=== PATIENT | female | born 1995 | race Caucasian/White ===

== ENCOUNTER 2021-11-04 05:38 | Emergency (ER) | payer OTHER, SELFPAY ==
--- NOTE | ~2021-11-04 | US_ITS ---
EXAMINATION: US OB LIMITED US OB TRANSVAGINAL CLINICAL INFORMATION: Vaginal bleeding at 6 months. COMPARISON: None TECHNIQUE: Both transabdominal and endovaginal ultrasound was performed. FINDINGS: A single fetus is present in a transverse lie. The fetus was active during the course of the exam, and a normal heartbeat of 142 bpm was noted. measurements in cm were as follows: BPD: 5.4 (22 weeks 3 days Occipitofrontal diameter: 7.6 (24 weeks 1 day) Head circumference: 21.3 (23 weeks 3 days) Femur length: 4.13 (23 weeks 3 days) No anomaly was seen although this was not a survey. Gestational age is best estimated at 23 weeks, 0 days with an MARCOS of 03/03/2022. Estimated weight is 1 lb. 3 oz. The cervix measured 3.4 cm in length and is closed. The placenta is low-lying but 3.3 cm from the cervix. There is a hypoechoic area within the placenta measuring 3.8 x 2.1 x 1.6 cm, most likely a normal placental blakely. No evidence of placental abruption. Amniotic fluid volume is normal. US/US OB transvaginal IMPRESSION: Normal-appearing fetus with mean gestational age best estimated at 23 weeks. No evidence of placenta previa or abruption.
--- NOTE | ~2021-11-04 | US_ITS ---
EXAMINATION: US OB LIMITED US OB TRANSVAGINAL CLINICAL INFORMATION: Vaginal bleeding at 6 months. COMPARISON: None TECHNIQUE: Both transabdominal and endovaginal ultrasound was performed. FINDINGS: A single fetus is present in a transverse lie. The fetus was active during the course of the exam, and a normal heartbeat of 142 bpm was noted. measurements in cm were as follows: BPD: 5.4 (22 weeks 3 days Occipitofrontal diameter: 7.6 (24 weeks 1 day) Head circumference: 21.3 (23 weeks 3 days) Femur length: 4.13 (23 weeks 3 days) No anomaly was seen although this was not a survey. Gestational age is best estimated at 23 weeks, 0 days with an MARCOS of 03/03/2022. Estimated weight is 1 lb. 3 oz. The cervix measured 3.4 cm in length and is closed. The placenta is low-lying but 3.3 cm from the cervix. There is a hypoechoic area within the placenta measuring 3.8 x 2.1 x 1.6 cm, most likely a normal placental blakely. No evidence of placental abruption. Amniotic fluid volume is normal. US/US OB limited IMPRESSION: Normal-appearing fetus with mean gestational age best estimated at 23 weeks. No evidence of placenta previa or abruption.
[2021-11-04 06:00] LABS: Basophils Percent Auto 0.3 % (0-2); Eosinophils Absolute Auto 0.1 X10*3/uL (0.0-0.4); Hematocrit 29.8 % (37.0-47.0); Hemoglobin 9.7 g/dl (12.0-16.0); Imm Gran Abs Auto 0.17 X10*3/uL (0.00-0.03); Imm Gran Pct Auto 1.5 % (0.0-0.4); Lymphocytes Absolute Auto 2.1 X10*3/uL (1.2-4.9); Lymphocytes Percent Auto 18.9 % (20-40); MANUAL DIFF FLAG NO; Mean Corpuscular HGB Conc 32.6 g/dl (31.0-35.0); Mean Corpuscular Hemoglobin 25.7 pg (27.0-33.0); Mean Platelet Volume 10.5 fL (9.4-12.3); Monocytes Absolute Auto 0.8 X10*3/uL (0.1-1.2); Monocytes Percent Auto 7.2 % (2-11); Neutrophils Percent Auto 71.1 % (45-73); Platelet Count 252 X10*3/uL (160-400); Red Blood Count 3.77 X10*6/uL (4.20-5.50); White Blood Count 11.2 X10*3/uL (4.8-10.8)
[2021-11-04 06:02] VITALS: BP 113/72; PULSE 108; RESP 18; TEMP 36.4; O2SAT 99; BMI 28.9
[2021-11-04 06:23] LABS: Alanine Aminotransferase 28 U/L (0-31); Albumin Level 3.6 g/dL (3.5-5.0); Alkaline Phosphatase 47 U/L (39-117); Anion Gap 11 (12-20); Aspartate Amino Transferase 22 U/L (5-31); Bilirubin Total 0.2 mg/dL (0.0-1.0); Blood Urea Nitrogen 7 mg/dL (9-16); Calcium 8.7 mg/dL (8.4-10.2); Carbon Dioxide 20 mmol/L (22-29); Chloride 107 mmol/L (96-108); Estimated Glomerular Filt Rate > 60; Glucose Random 86 mg/dL (60-115); Potassium 3.9 mmol/L (3.3-5.1); Sodium 134 mmol/L (135-145); Total Protein 6.8 g/dL (6.5-8.0)
[2021-11-04 06:50] LABS: HCG Quantitative 21329 mIU/mL
[2021-11-04 07:10] VITALS: BP 98/61; PULSE 105; RESP 16; O2SAT 100
[2021-11-04] MEDS: 0.9 % Sodium Chloride 1,000 ML 999 ML IV (07:16)
[2021-11-04 08:35] VITALS: BP 101/62; PULSE 88; RESP 16; O2SAT 100
[2021-11-04 08:46] LABS: Appearance Urine HAZY; Color Urine STRAW; Glucose Urine UA NEG (NEG); Leukocyte Esterase Urine NEG (NEG); Nitrite Urine NEG (NEG); PH 5.5 (5.0-8.0); Urine Blood NEG (NEG); Urine Ketones NEG (NEG); Urine Protein NEG (NEG-TRACE)
[2021-11-04 08:48] LABS: UPreg QC Valid YES; Urine Pregnancy POSITIVE (NEGATIVE)
--- NOTE | 2021-11-04 10:29 | ED_ITS ---
HPI - General Chief complaint: OB Stated complaint: vaginal bleeding, 6 mos Time Seen by Provider: 11/04/21 06:53 Source: patient and paraprofessional interpreter Mode of arrival: ambulatory History of Present Illness HPI Narrative: 26-year-old female who is comes in with having had a verbal altercation with her significant other and then afterwards developed lower pelvic cramping and she states that when your she went pee that she noted there was some blood within the urine. Otherwise she is currently asymptomatic and states that she still feels the child moving. She states that has been uncomplicated and she currently has no complaints of fever, chills, visual changes, lower extremity swelling, nausea, vomiting. Patient denies that she was hit or struck by her significant other and states she feels safe at home. Related Data Allergies Allergy/AdvReac Type Severity Reaction Status Date / Time No Known Allergies Allergy Verified 11/04/21 06:00 Review of Systems Review of Systems: Pertinent positives and negatives as stated in HPI 10 point review of systems is otherwise negative. PMFSH Social History Social History Smoked in Last 30 Days: No Use of substances other than those prescribed or required for medical reasons: No Advance Directives: No Advance Directives Information Provided: No Patient : Yes Physical Exam Vital Signs: Vital Signs: Last Vital Signs Temp 97.6 F 11/04/21 06:02 Pulse 88 11/04/21 08:35 Resp 16 11/04/21 08:35 BP 101/62 11/04/21 08:35 Pulse Ox 100 11/04/21 08:35 O2 Del Method 11/04/21 08:35 BMI result Body Mass Index 28.9 VITAL SIGNS: Reviewed. GENERAL: Well developed, well nourished, in no acute distress. HEAD: Normocephalic/atraumatic EYES: PERRLA, EOMI EARS: Ext canals without abnormalit OROPHARYNX: no oral lesions noted, posterior pharynx clear LUNGS: Normal breath sounds. No adventitious sounds or accessory muscle use. SpO2<100> CARDIOVASCULAR: Regular rate and rhythm without noted murmurs, no JVD or lower extremity edema. ABDOMEN: Soft, gravid, non-tender, non-distended with bowel sounds. MUSCULOSKELETAL: No tenderness, deformities, or effusions noted on gross inspection. EXTREMITIES: No cyanosis, clubbing or edema. SKIN: Inspection of the skin reveals no rashes NEUROLOGIC: Alert and oriented x 4. Strength and sensation to light touch were grossly intact x 4. Course Course Course Narrative: 26-year-old female with history and clinical presentation consistent with likely stress induced abdominal symptoms but no concerns for premature labor. Patient is now completely asymptomatic, feeling better and on review of all investigations there are no acute findings. Patient was instructed to follow-up with her hurl shaker by calling the office today. Review of all investigations negative for acute findings. MDM - OB/Uterine Contractions Lab Data Result diagrams: 11/04/21 05:56 11/04/21 05:56 Labs: Lab Results 11/04/21 11/04/21 11/04/21 Range/Units 05:56 05:56 08:38 WBC 11.2 H (4.8-10.8) X10*3/uL RBC 3.77 L (4.20-5.50) X10*6/uL Hgb 9.7 L (12.0-16.0) g/dl Hct 29.8 L (37.0-47.0) % MCV 79.0 L (80.0-98.0) fL MCH 25.7 L (27.0-33.0) pg MCHC 32.6 (31.0-35.0) g/dl RDW 15.0 (11.0-16.0) % Plt Count 252 (160-400) X10*3/uL MPV 10.5 (9.4-12.3) fL Immature Gran % (Auto) 1.5 H (0.0-0.4) % Neut % (Auto) 71.1 (45-73) % Lymph % (Auto) 18.9 L (20-40) % [place] % (Auto) 7.2 (2-11) % Eos % (Auto) 1.0 (0-4) % Baso % (Auto) 0.3 (0-2) % Lymph # (Auto) 2.1 (1.2-4.9) X10*3/uL [place] # (Auto) 0.8 (0.1-1.2) X10*3/uL Eos # (Auto) 0.1 (0.0-0.4) X10*3/uL Baso # (Auto) 0.0 (0.0-0.2) X10*3/uL Abs Immat Gran (auto) 0.17 H (0.00-0.03) X10*3/uL Absolute Neuts (auto) 8.0 (2.0-8.3) x10*3/uL Absolute Nucleated RBC 0.000 (0.0-0.012) X10*3/uL Nucleated RBC % (auto) 0.0 (0.0-0.2) /100WBC Sodium 134 L (135-145) mmol/L Potassium 3.9 (3.3-5.1) mmol/L Chloride 107 (96-108) mmol/L Carbon Dioxide 20 L (22-29) mmol/L Anion Gap 11 L (12-20) BUN 7 L (9-16) mg/dL Creatinine 0.56 (0.5-1.4) mg/dL Estim Creat Clear Calc 138.0 Estimated GFR > 60 Random Glucose 86 (60-115) mg/dL Calcium 8.7 (8.4-10.2) mg/dL Total Bilirubin 0.2 (0.0-1.0) mg/dL AST 22 (5-31) U/L ALT 28 (0-31) U/L Alkaline Phosphatase 47 (39-117) U/L Total Protein 6.8 (6.5-8.0) g/dL Albumin 3.6 (3.5-5.0) g/dL Beta HCG, Quant 42543 mIU/mL Urine Color STRAW Urine Appearance HAZY Urine pH 5.5 (5.0-8.0) Ur Specific [place] 1.020 (1.005-1.025) Urine Protein NEG (NEG-TRACE) MG/DL Urine Glucose (UA) NEG (NEG) MG/DL Urine Ketones NEG (NEG) MG/DL Urine Blood NEG (NEG) Urine Nitrite NEG (NEG) Ur Leukocyte Esterase NEG (NEG) Urine Test (NEGATIVE) 11/04/21 Range/Units 08:38 WBC (4.8-10.8) X10*3/uL RBC (4.20-5.50) X10*6/uL Hgb (12.0-16.0) g/dl Hct (37.0-47.0) % MCV (80.0-98.0) fL MCH (27.0-33.0) pg MCHC (31.0-35.0) g/dl RDW (11.0-16.0) % Plt Count (160-400) X10*3/uL MPV (9.4-12.3) fL Immature Gran % (Auto) (0.0-0.4) % Neut % (Auto) (45-73) % Lymph % (Auto) (20-40) % [place] % (Auto) (2-11) % Eos % (Auto) (0-4) % Baso % (Auto) (0-2) % Lymph # (Auto) (1.2-4.9) X10*3/uL [place] # (Auto) (0.1-1.2) X10*3/uL Eos # (Auto) (0.0-0.4) X10*3/uL Baso # (Auto) (0.0-0.2) X10*3/uL Abs Immat Gran (auto) (0.00-0.03) X10*3/uL Absolute Neuts (auto) (2.0-8.3) x10*3/uL Absolute Nucleated RBC (0.0-0.012) X10*3/uL Nucleated RBC % (auto) (0.0-0.2) /100WBC Sodium (135-145) mmol/L Potassium (3.3-5.1) mmol/L Chloride (96-108) mmol/L Carbon Dioxide (22-29) mmol/L Anion Gap (12-20) BUN (9-16) mg/dL Creatinine (0.5-1.4) mg/dL Estim Creat Clear Calc Estimated GFR Random Glucose (60-115) mg/dL Calcium (8.4-10.2) mg/dL Total Bilirubin (0.0-1.0) mg/dL AST (5-31) U/L ALT (0-31) U/L Alkaline Phosphatase (39-117) U/L Total Protein (6.5-8.0) g/dL Albumin (3.5-5.0) g/dL Beta HCG, Quant mIU/mL Urine Color Urine Appearance Urine pH (5.0-8.0) Ur Specific [place] (1.005-1.025) Urine Protein (NEG-TRACE) MG/DL Urine Glucose (UA) (NEG) MG/DL Urine Ketones (NEG) MG/DL Urine Blood (NEG) Urine Nitrite (NEG) Ur Leukocyte Esterase (NEG) Urine Test POSITIVE H (NEGATIVE) Discharge Plan Discharge Clinical Impression: , Abdominal cramping Patient Disposition: Home, Self-Care Instructions: (ED), Abdominal Pain in (ED) Additional Instructions: 1. Aumente la cantidad de agua que dion a lo jairon del d?a. 2. Llame a la oficina de randhawa obstetra hoy para programar un seguimiento. Regrese a la maritza de emergencias si los s?ntomas empeoran. Referrals: De Anton Nath MD [Primary Care Provider] - Print Language: Maltese
[2021-11-04 11:23] VITALS: BP 108/63; PULSE 102; RESP 16; O2SAT 99
== END 2021-11-04 11:32 | disposition home or self-care (01) ==
PROVIDERS: Emergency Provider Student in an Organized Health Care Education/Training Program; PCP Obstetrics & Gynecology
DX: O26.892 Other specified pregnancy related conditions, second trimester (principal); R10.9 Unspecified abdominal pain; Z3A.00 Weeks of gestation of pregnancy not specified
CPT/HCPCS: 36415; 76815; 76817; 80053; 81003; 81025; 84702; 85025; 96360; 99284

== ENCOUNTER 2023-05-22 11:45 | Emergency (ER) | payer OTHER, SELFPAY ==
--- NOTE | ~2023-05-22 | CT_ITS ---
EXAMINATION: CT HEAD WITHOUT CONTRAST CLINICAL INFORMATION: Fall. Head right. COMPARISON: None available. TECHNIQUE: Contiguous axial imaging was performed from the skull base to vertex without intravenous administration of contrast. This CT examination was performed using dose optimization techniques as appropriate, variously including the following: *Automated exposure control *Adjustment of mA and/or kV according to patient size (this includes techniques or standardized protocols for targeted exams where dose is matched to indication/reason for exam; i.e. extremities or head) *Use of iterative reconstruction technique DLP: 1299 mGy-cm FINDINGS: There is no intracranial hemorrhage. No evidence of acute/subacute cerebral or cerebellar infarction. No midline shift or mass effect. No extra-axial fluid collection. The ventricles are normal in size and
--- NOTE | ~2023-05-22 | CT_ITS ---
EXAMINATION: CT CERVICAL SPINE WITHOUT CONTRAST CLINICAL INFORMATION: Fall. Head strike. COMPARISON: None available. TECHNIQUE: Computed tomography of the cervical spine was performed without contrast. This CT examination was performed using dose optimization techniques as appropriate, variously including the following: *Automated exposure control *Adjustment of mA and/or kV according to patient size (this includes techniques or standardized protocols for targeted exams where dose is matched to indication/reason for exam; i.e. extremities or head) *Use of iterative reconstruction technique DLP: 386 mGy-cm FINDINGS: There is straightening of the cervical lordosis. Alignment is otherwise anatomic. The facet joints are anatomically aligned. There is no prevertebral soft tissue swelling. The dens is intact. The C1-C2 relationship is anatomic. Vertebral body heights are preserved. Intervertebral disc space heights are preserved. There is no fracture. The paraspinal soft tissue is within normal limits. No paraspinal mass lesion. The thyroid gland is normal in appearance. The lung apices are clear. No pneumothorax. CT/CT cervical spine wo IV con IMPRESSION: No acute osseous cervical spine abnormality. Fleischner guidelines were followed.
[2023-05-22 12:17] VITALS: BP 132/77; PULSE 78; RESP 20; TEMP 37; O2SAT 98; BMI 31.3
--- NOTE | 2023-05-22 12:20 | ED_ITS ---
HPI - General Adult General Chief complaint: Fall Stated complaint: Nose injury Time Seen by Provider: 05/22/23 13:20 Source: patient, RN notes reviewed and old records reviewed Mode of arrival: ambulatory History of Present Illness HPI narrative: 27-year-old female with no significant past medical history presenting to the ED complaining of nasal pain, left periorbital swelling and headache s/p mechanical slip and fall this morning when trying to get into a vehicle. States she was shoveling when slipped and fell forward hitting face/nose on vehicle step, denies taking anticoagulation or LOC. Denies nausea/vomiting, vision change/ loss, neck/back pain Related Data Previous Rx's Medication Instructions Recorded amoxicillin 875 mg-potassium 1 tab PO BID 7 days #14 tabs 05/22/23 clavulanate 125 mg tablet Allergies Allergy/AdvReac Type Severity Reaction Status Date / Time No Known Allergies Allergy Verified 05/22/23 12:21 Review of Systems Review of Systems: Constitutional: No Fever, No Chills ENT/Mouth: +nasal pain/swelling, No Ear Pain, No Nasal Congestion, No sore throat, No Rhinorrhea, No Swallowing Difficulty Cardiovascular: No Chest Pain, No SOB Respiratory: No Cough Gastrointestinal: No Nausea, No Vomiting, No Abdominal pain Genitourinary: No Urinary Incontinence/retention Musculoskeletal: No joint pain, No Myalgias, No Joint Swelling Skin: No Skin Lesions, No rash Neuro: No Weakness, No Numbness, No Paresthesias, +IVEY Yes all other systems are reviewed and are negative Constitutional: Constitutional: Reports as per HPI Neurologic: Denies Abnormal speech present [facility] Past Medical History Attestation statement: The following information was validated with the patient. Source: old records reviewed Onset Date is defined in the Problem List Problems that require an onset date and time if occurred within 24 hrs of arrival to the ED Aortic Dissection and Rupture; Neurologic impairment; Cardiopulmonary Arrest; Endotracheal Intubation; Insertion or Replacement of Mechanical Circulatory Assist Device Social History Social History Advance Directives: No Physical Exam ED Vital Signs: Vital Signs - 24 hr 05/22/23 12:17 Temperature 98.6 F Pulse Rate 78 Respiratory Rate 20 Blood Pressure 132/77 Pulse Oximetry 98 Oxygen Delivery Method Room Air BMI result Body Mass Index 31.3 Const General: cooperative, healthy appearing and no acute distress Orientation/consciousness: patient oriented x3 Limitations: no limitations HENMT Other: + nasal bridge swelling with tenderness. No appreciable deformity. No septal hematoma or active epistaxis + left periorbital swelling with ecchymosis. No palpable step-off. EOMs intact without entrapment or pain Head: Yes normal to inspection and Yes atraumatic Ears: hearing grossly normal bilaterally General nose exam: Normal external nose present Face and sinus: Yes normal facial exam Mouth: Normal oral and palatal mucosa present and no drooling Throat: Yes posterior oropharynx normal, Yes uvula midline and No peritonsillar mass Eyes General: appearance normal, both eyes and all related structures Pupils: Equal, round and reactive pupils present EOM: EOMs intact bilaterally Neck Neck: Yes normal visual inspection, Yes no meningeal signs and No anterior neck swelling Chest Chest palpation & inspection: normal inspection of the chest Resp Effort & Inspection: normal respiratory effort and no respiratory distress Auscultation: clear to auscultation bilaterally Cardio Rate: regular rate Heart sounds: S1 normal heart sound present and S2 normal heart sound present GI Inspection: Yes normal to inspection Palpation (GI): Soft to palpation, nontender, no guarding and not rigid General: Yes no CVA tenderness Back/Spine/Pelvis Other: No midline cervical/thoracic/lumbar spinous tenderness/step-off or deformity Back: no CVA tenderness Skin Rashes: no rashes Wounds: no wounds Neuro General: patient oriented x3, gait normal, tone normal, moves all extremities, no meningeal signs, no focal motor deficits and CN's II-XI intact bilaterally Cranial nerves: Yes CN's II-XII intact bilaterally, Yes Equal, round and reactive pupils present and Yes Bilaterally intact EOM present Cognition (Neuro): normal cognition Speech: No Abnormal speech present Gait exam (Neuro): Normal gait present Motor exam (neuro): 5/5 motor strength present throughout Extrem General: Yes normal to inspection Course Course Course Narrative: RME performed by Eliana Marie PA-C. Patient is a 27 year old assigned female at presenting to the emergency department with face and head pain. Patient states that she slipped trying to clean off of her car and hit her face on the side of the car and the ground. Patient denies any loss of conciousness. Detailed physical exam and review of systems are deferred to the cane furniture maker. Imaging ordered. Patient placed back in the waiting room pending room availability and results. CT head/brain wo IV con IMPRESSION: No acute intracranial abnormality. Comminuted left nasal bone fracture. The above findings were discussed with Laura MURRAY at 2:41 PM on 05/22/2023. CT facial bones wo IV con IMPRESSION: There is a comminuted left nasal bone fracture. The overlying soft tissue is mildly swollen. There is mild left periorbital swelling. The orbits are intact. The above findings were discussed with Laura MURRAY at 2:41 PM on 05/22/2023. CT cervical spine wo IV con IMPRESSION: No acute osseous cervical spine abnormality. Fleischner guidelines were followed. > will discharge patient home with antibiotics and ENT follow-up Medications Administered Discontinued Medications Generic Name Dose Route Start Last Admin Trade Name Freq PRN Reason Stop Dose Admin Acetaminophen/Butalbital/Caffeine 1 tab 05/22/23 14:17 05/22/23 15:25 Butalb/Acetamin/Caff 50/325/40 Tablet PO 05/22/23 14:18 1 tab ONCE ONE Administration Medical Decision Making Medical Decision Making MDM Narrative: 27-year-old female with no significant past medical history presenting to the ED complaining of nasal pain, left periorbital swelling and headache s/p mechanical slip and fall this morning when trying to get into a vehicle. On exam vital signs stable, NAD, nontoxic appearing, physical exam as noted above. No midline spinous tenderness throughout. No septal hematoma or active epistaxis. Concern for nasal bone fracture vs facial bone fracture vs concussion or ICH. Plan: Head/C-spine and facial bone CT ordered in triage Please refer to course for remaining clinical decision making, interpretation of labs/imaging results, and discussions with consultants and/or family members. Differential Diagnosis Differential Diagnoses: The differential diagnosis associated with the presentation includes As above Admission/Observation Consideration of admission/observation: Escalation of care including admission/observation considered Lab Data [facility] Lab Attestation statement: I reviewed the patient's lab results. Independent Interpretation I performed an independent interpretation of an: CT Scan Radiology Impression Discussion of test interpretation with radiology: I have reviewed the radiologist's reading. External Record Review External record reviewed: Inpatient record, Office record, Outpatient record, Prior outpatient labs, Prior outpatient radiology, Primary care record and Outside ED record Tests considered The following testing was considered but not selected: As above Prescription Management I considered prescription management with: Pain Medication Discharge Plan Discharge Clinical Impression: Fracture of nasal bone Patient Disposition: Home, Self-Care Instructions: Nasal Fracture (ED) Additional Instructions: You broke her nose. Augmentin is an antibiotic please take as prescribed You need to follow-up with the ENT specialist Take Tylenol and Motrin for pain/swelling Avoid any facial trauma, increased pressure to face, nasal blowing, sneezing and coughing Le rompiste la nariz. Augmentin es un antibi?david, t?marroquin seg?n lo recetado. Es necesario realizar un seguimiento con el otorrinolaring?logo. Doland Tylenol y Motrin para el dolor/hinchaz?n Evite cualquier traumatismo facial, aumento de presi?n en la patience, sonarse la nariz, estornudar y toser. Prescriptions: New amoxicillin-pot clavulanate 875-125 mg tablet 1 tab PO BID 7 Days Qty: 14 0RF Referrals: Serjio Casanova [Physician] - Stand Alone Forms: Work/School Release Interventions: ED Discharge Assessment Last Done: 05/22/23 15:57 Discharge Date/Time: 05/22/23 15:57 Print Language: Georgian
== END 2023-05-22 15:57 | disposition home or self-care (01) ==
PROVIDERS: Emergency Provider Emergency Medicine
DX: S02.2XXA Fracture of nasal bones, initial encounter for closed fracture (principal); M54.2 Cervicalgia; R51.9 Headache, unspecified; W01.10XA Fall on same level from slipping, tripping and stumbling with subsequent striking against unspecified object, initial encounter; Y93.9 Activity, unspecified; Y92.9 Unspecified place or not applicable; Y99.9 Unspecified external cause status
CPT/HCPCS: 70450; 70486; 72125; 99283; 99284

== ENCOUNTER 2023-09-04 23:50 | Emergency (ER) | payer OTHER, SELFPAY ==
[2023-09-04 23:52] VITALS: BP 132/78; PULSE 100; RESP 18; TEMP 36.9; O2SAT 98; BMI 29.1
--- NOTE | 2023-09-05 00:03 | ED.DENTAL ---
HPI - Dental/Oral General Chief complaint: Dental/Oral Stated complaint: dental pain Time Seen by Provider: 09/05/23 00:01 Source: patient and surgical product sales consultant Mode of arrival: ambulatory Limitations: language barrier History of Present Illness HPI Narrative: Patient is a 28-year-old Cymro-speaking female presenting to the emergency department with complaint of ongoing left ear pain and drainage. Patient was started on amoxicillin at urgent care on 08/30 but states that symptoms have not improved and is now having clear/bloody drainage from her left ear. She has been using Tylenol but pain is persistent and she rates it at 10/10. She reports at times she feels her hearing is decreased until the fluid drains. She denies fevers. States pain is radiating to left lateral neck. Related Data Previous Rx's ?Medication ?Instructions ?Recorded amoxicillin 875 mg-potassium 1 tab PO BID 7 days #14 tabs 05/22/23 clavulanate 125 mg tablet ciprofloxacin 0.3 %-dexamethasone 4 drp otic (ears) BID 7 days #7.5 09/05/23 0.1 % ear drops,suspension mL Allergies Allergy/AdvReac Type Severity Reaction Status Date / Time No Known Allergies Allergy Verified 09/04/23 23:54 Review of Systems Review of Systems: As per HPI. Yes all other systems are reviewed and are negative Constitutional: Constitutional: Reports as per HPI Physical Exam Vital Signs: Vital Signs: Last Vital Signs Temp 98.4 F 09/04/23 23:52 Pulse 100 09/04/23 23:52 Resp 18 09/04/23 23:52 BP 132/78 09/04/23 23:52 Pulse Ox 98 09/04/23 23:52 O2 Del Method Room Air 09/04/23 23:52 BMI result Body Mass Index 29.1 Const: General: cooperative, healthy appearing and no acute distress Orientation/consciousness: oriented to person, oriented to place, oriented to time and patient oriented x3 Limitations: no limitations HEENT: Head: Yes normocephalic and Yes atraumatic Ears: hearing grossly normal bilaterally, external ears normal, TM normal on the right, mastoids normal bilaterally, no periauricular adenopathy, Abnormal EAC present EAC tenderness on the left and otic discharge bloody on the left and clear on the left and unable to visualize TM on the left General nose exam: Normal external nose present Face and sinus: Yes face symmetric Mouth: oropharynx normal and moist mucous membranes Throat: Yes uvula midline Eyes: Pupils: Equal, round and reactive pupils present Neck: Neck: Yes normal visual inspection and Yes supple Resp: Effort & Inspection: normal respiratory effort and able to speak in complete sentences Auscultation: clear to auscultation bilaterally Cardio: Rate: regular rate Rhythm: regular rhythm Heart sounds: S1 normal heart sound present and S2 normal heart sound present Skin: General skin exam: elasticity normal and turgor normal Neuro: General: oriented to person, oriented to place, oriented to time, patient oriented x3, moves all extremities, no focal motor deficits and CN's II-XI intact bilaterally Cranial nerves: Yes Equal, round and reactive pupils present Cognition (Neuro): normal cognition Extrem: General: Yes full ROM, Yes no pedal edema and Yes no calf tenderness Psych: Mental Status: mental status grossly normal Affect: normal affect Thought process: Normal thought process present Medical Decision Making Medical Decision Making MDM Narrative: Patient is a 28-year-old Cymro-speaking female presenting to the emergency department with complaint of ongoing left ear pain and drainage. On exam patient is awake, A+Ox3, VS WNL, afebrile, normal neurological exam without focal deficits, physical exam findings as above. Given reported symptoms and physical exam findings, initial differential includes otitis externa, otitis media, mastoiditis. Unable to fully visualize left TM due to drainage, based on physical exam findings, will treat patient for otitis externa with Ciprodex drops. Advised patient to complete course of amoxicillin that she was previously prescribed as well. Instructed patient follow-up with her primary care provider. Return precautions discussed at bedside. Patient verbalized understanding of and agreement with plan. All results, plan, return precautions discussed with patient via mortar man. Differential Diagnosis Differential Diagnoses: The differential diagnosis associated with the presentation includes As per MDM. External Record Review External record reviewed: Inpatient record, Office record and Outpatient record Prescription Management I considered prescription management with: Antibiotic Discharge Plan Discharge Clinical Impression: Otitis externa Qualifiers: Laterality: left Patient Disposition: Home, Self-Care Instructions: Otitis Externa (DC) Additional Instructions: You were evaluated in the emergency department today for ear pain. Your evaluation suggests that your pain is due to an external ear infection. Please take your prescribed antibiotic drops as directed for the full course of the medication. You should also complete the course of antibiotics that you were previously prescribed. Please follow up with your primary care provider within two days. Return to the emergency department if you experience hearing loss, worsening pain, increased discharge from your ear, facial or neck swelling, headaches, fevers, recurrent vomiting, or any other concerning symptoms. Prescriptions: New ciprofloxacin-dexamethasone 0.3-0.1 % drops,suspension 4 drp otic (ears) BID 7 Days Qty: 7.5 0RF No Action amoxicillin-pot clavulanate 875-125 mg tablet 1 tab PO BID 7 Days Qty: 14 0RF Print Language: Cymro
[2023-09-05 00:32] VITALS: BP 132/78; PULSE 100; RESP 18; TEMP 36.9; O2SAT 98
== END 2023-09-05 00:33 | disposition home or self-care (01) ==
PROVIDERS: Emergency Provider Internal Medicine
DX: H60.92 Unspecified otitis externa, left ear (principal)
CPT/HCPCS: 99283

== ENCOUNTER 2023-11-12 20:56 | Inpatient (IN) | payer OTHER, SELFPAY ==
--- NOTE | ~2023-11-12 | XR_ITS ---
EXAMINATION: XR CHEST CLINICAL INFORMATION: cough, fevers, WBC count 28 COMPARISON: None available. TECHNIQUE: AP view of the chest was obtained. FINDINGS: The lungs are well expanded. There is a focal opacity in the right midlung. No pleural effusion, pulmonary edema pneumothorax. The cardiomediastinal silhouette is within normal limits for technique. No acute osseous abnormality. XR/XR chest 1V IMPRESSION: Focal opacity in the right midlung may represent pneumonia in the proper clinical setting. Recommend follow-up to resolution.
[2023-11-12 21:00] VITALS: BP 117/59; PULSE 130; RESP 18; TEMP 37.4; O2SAT 100; BMI 30.9
[2023-11-12 21:34] LABS: Basophils Absolute Auto 0.1 X10*3/uL (0.0-0.2); Basophils Percent Auto 0.2 % (0-2); Hematocrit 34.1 % (37.0-47.0); Imm Gran Abs Auto 0.29 X10*3/uL (0.00-0.03); Lymphocytes Absolute Auto 1.1 X10*3/uL (1.2-4.9); Lymphocytes Percent Auto 3.8 % (20-40); MANUAL DIFF FLAG SCAN; Mean Corpuscular HGB Conc 32.3 g/dl (31.0-35.0); Mean Corpuscular Hemoglobin 23.8 pg (27.0-33.0); Mean Corpuscular Volume 73.8 fL (80.0-98.0); Mean Platelet Volume 11.3 fL (9.4-12.3); Monocytes Absolute Auto 2.2 X10*3/uL (0.1-1.2); Monocytes Percent Auto 7.6 % (2-11); Neutrophils Absolute Auto 24.9 x10*3/uL (2.0-8.3); Neutrophils Percent Auto 87.4 % (45-73); Platelet Count 305 X10*3/uL (160-400); Red Blood Count 4.62 X10*6/uL (4.20-5.50); Red Cell Distribution Width 16.2 % (11.0-16.0); SCAN SMEAR FLAG 1; White Blood Count 28.6 X10*3/uL (4.8-10.8)
[2023-11-12 21:35] LABS: Appearance Urine Cloudy; Color Urine Yellow; Glucose Urine UA Negative (Negative); Leukocyte Esterase Urine Negative (Negative); Nitrite Urine Positive (Negative); PH 6.5 (5.0-9.0); Specific Gravity - Urine 1.025 (1.005-1.025); UMIC TRIGGER UACC YES; Urine Blood Negative (Negative); Urine Ketones Negative (Negative); Urine Protein Trace mg/dL (Neg-Trace)
[2023-11-12 21:36] LABS: UPreg QC Valid YES; Urine Pregnancy NEGATIVE (NEGATIVE)
[2023-11-12 21:40] LABS: Bacteria Urine 4+ (None Seen); RBC Urine 0-2 /HPF (0-2); UACC Culture Trigger YES; WBC Urine 0-5 /HPF (0-5)
[2023-11-12 21:52] LABS: Alanine Aminotransferase 13 U/L (0-31); Albumin Level 4.4 g/dL (3.5-5.0); Alkaline Phosphatase 54 U/L (39-117); Anion Gap 15 (12-20); Aspartate Amino Transferase 17 U/L (5-31); Bilirubin Total 0.6 mg/dL (0.0-1.0); Blood Urea Nitrogen 7 mg/dL (9-16); Calcium 9.6 mg/dL (8.4-10.2); Carbon Dioxide 21 mmol/L (22-29); Chloride 104 mmol/L (96-108); Creatinine Clr Calc Pharmacy 113.7; Estimated Glomerular Filt Rate > 60; Glucose Random 112 mg/dL (60-115); Potassium 3.7 mmol/L (3.3-5.1); Sodium 136 mmol/L (135-145); Total Protein 8.4 g/dL (6.5-8.0)
[2023-11-12 21:55] LABS: SLIDE REVIEW VERIFIED
[2023-11-12 22:11] LABS: Influenza A PCR NEGATIVE (Negative); Influenza B PCR NEGATIVE (Negative); Resp Syncy Virus RNA Qual PCR NEGATIVE (Negative); SARS COV2 PCR INHOUSE NEGATIVE (Negative)
--- NOTE | 2023-11-12 23:33 | ED.GENADULT ---
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 No travel, she took motrin at 3pm with little relief. She has never felt like this before. MD complaint: body aches, chills, fevers Onset (ago): day(s) (1) Radiation: non-radiation Severity: moderate Quality: aching Pain Consistency: constant Relieving factors: none Exacerbating factors: none Associated symptoms: cough, fever/chills, headaches, loss of appetite and malaise Treatments prior to arrival: NSAID Related Data Previous Rx's ?Medication ?Instructions ?Recorded amoxicillin 875 mg-potassium 1 tab PO BID 7 days #14 tabs 05/22/23 clavulanate 125 mg tablet ciprofloxacin 0.3 %-dexamethasone 4 drp otic (ears) BID 7 days #7.5 09/05/23 0.1 % ear drops,suspension mL Allergies Allergy/AdvReac Type Severity Reaction Status Date / Time No Known Allergies Allergy Verified 11/12/23 21:02 Review of Systems Review of Systems: Constitutional : pos Fever, pos Chills, pos Fatigue ENT/Mouth : No sore throat, No Rhinorrhea Eyes: No Eye Pain, No Swelling, No Redness Cardiovascular : No Chest Pain, No SOB, No Dyspnea on Exertion Respiratory : pos Cough, No Sputum Gastrointestinal : No Nausea, No Vomiting, No Diarrhea, No abdominal Pain Genitourinary : No Dysuria, No Urinary Frequency, No Hematuria, Musculoskeletal : No joint pain, pos Myalgias, No Joint Swelling Skin : No Skin Lesions, No rash Neuro : No Weakness, No Numbness, No Dizziness, positive Headache Psych : No Anxiety/Panic, No Depression All other systems reviewed and are negative [facility] Past Medical History Attestation statement: The following information was validated with the patient. Source: old records reviewed Medical History No pertinent past medical history Social History Social History (Updated 11/12/23 @ 23:54 by Jacquelin Grajeda DO) Patient Tobacco Use Status: Never used Tobacco Physical Exam ED Vital Signs: Vital Signs - 24 hr 11/12/23 21:00 Temperature 99.4 F Pulse Rate 130 H Respiratory Rate 18 Blood Pressure 117/59 L Pulse Oximetry 100 Oxygen Delivery Method Room Air BMI result Body Mass Index 30.9 Appearance: Alert. Oriented X3. appears uncomfortable mild acute distress. Eyes: Pupils equal, round and reactive to light. ENT: Pharynx normal. Neck: Normal inspection. Neck supple. CVS: tachycardic heart rate and rhythm. Pulses normal. Respiratory: No respiratory distress. Breath sounds rales noted r lower and mid lung diminished Abdomen: Soft and nontender. Skin: Skin warm and dry. Normal skin color. Normal skin turgor. Extremities: No lower extremity edema. No calf ttp Neuro: Oriented X 3. No motor deficit. No sensory deficit. 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 Differential Diagnosis Differential Diagnoses: The differential diagnosis associated with the presentation includes UTI, pneumonia, viral syndrome Admission/Observation Consideration of admission/observation: Escalation of care including admission/observation considered admit given signs of sepsis Consult Healthcare Provider Management of the patient was discussed with: Hospitalist (will admit) Lab Data [facility] Lab Attestation statement: I reviewed the patient's lab results. 11/12/23 21:15 11/12/23 21:15 Labs: Lab Results 11/12/23 11/12/23 Range/Units 21:15 21:20 WBC 28.6 H (4.8-10.8) X10*3/uL RBC 4.62 D (4.20-5.50) X10*6/uL Hgb 11.0 L (12.0-16.0) g/dl Hct 34.1 L (37.0-47.0) % MCV 73.8 L (80.0-98.0) fL MCH 23.8 L (27.0-33.0) pg MCHC 32.3 (31.0-35.0) g/dl RDW 16.2 H (11.0-16.0) % Plt Count 305 (160-400) X10*3/uL MPV 11.3 (9.4-12.3) fL Immature Gran % (Auto) 1.0 H (0.0-0.4) % Neut % (Auto) 87.4 H (45-73) % Lymph % (Auto) 3.8 L (20-40) % [place] % (Auto) 7.6 (2-11) % Eos % (Auto) 0.0 (0-4) % Baso % (Auto) 0.2 (0-2) % Lymph # (Auto) 1.1 L (1.2-4.9) X10*3/uL [place] # (Auto) 2.2 H (0.1-1.2) X10*3/uL Eos # (Auto) 0.0 (0.0-0.4) X10*3/uL Baso # (Auto) 0.1 (0.0-0.2) X10*3/uL Abs Immat Gran (auto) 0.29 H (0.00-0.03) X10*3/uL Absolute Neuts (auto) 24.9 H (2.0-8.3) x10*3/uL Absolute Nucleated RBC 0.000 (0.0-0.012) X10*3/uL Nucleated RBC % (auto) 0.0 (0.0-0.2) /100WBC Smear Tech's Comments VERIFIED Sodium 136 (135-145) mmol/L Potassium 3.7 (3.3-5.1) mmol/L Chloride 104 (96-108) mmol/L Carbon Dioxide 21 L (22-29) mmol/L Anion Gap 15 (12-20) BUN 7 L (9-16) mg/dL Creatinine 0.69 (0.5-1.4) mg/dL Estim Creat Clear Calc 113.7 Estimated GFR > 60 Random Glucose 112 (60-115) mg/dL Calcium 9.6 D (8.4-10.2) mg/dL Total Bilirubin 0.6 (0.0-1.0) mg/dL AST 17 (5-31) U/L ALT 13 (0-31) U/L Alkaline Phosphatase 54 (39-117) U/L Total Protein 8.4 H (6.5-8.0) g/dL Albumin 4.4 (3.5-5.0) g/dL Urine Color Yellow Urine Appearance Cloudy Urine pH 6.5 (5.0-9.0) Ur Specific [place] 1.025 (1.005-1.025) Urine Protein Trace (Neg-Trace) mg/dL Urine Glucose (UA) Negative (Negative) mg/dL Urine Ketones Negative (Negative) mg/dL Urine Blood Negative (Negative) Urine Nitrite Positive H (Negative) Ur Leukocyte Esterase Negative (Negative) Urine RBC 0-2 (0-2) /HPF Urine WBC 0-5 (0-5) /HPF Ur Squamous Epith Cells 3-5 (0-2) /HPF Urine Bacteria 4+ (None Seen) Hyaline Casts 3-5 (0-2) /LPF Urine Test NEGATIVE (NEGATIVE) Influenza Type A (PCR) NEGATIVE (Negative) Influenza Type B (PCR) NEGATIVE (Negative) RSV RNA Qual (PCR) NEGATIVE (Negative) SARS-CoV-2 RNA (RT-PCR) NEGATIVE (Negative) Independent Interpretation I performed an independent interpretation of an: Plain X-Ray (+ R pneumonia) Radiology Impression Discussion of test interpretation with radiology: I have reviewed the radiologist's reading. Discharge Plan Discharge Clinical Impression: Pneumonia, Elevated WBC count, Fever Patient Disposition: Admitted As Inpatient Prescriptions: No Action amoxicillin-pot clavulanate 875-125 mg tablet 1 tab PO BID 7 Days Qty: 14 0RF ciprofloxacin-dexamethasone 0.3-0.1 % drops,suspension 4 drp otic (ears) BID 7 Days Qty: 7.5 0RF Print Language: Uzbek
[2023-11-12] MEDS: ondansetron HCL 4 MG/2 ML VIAL IVPUSH (23:55)
[2023-11-12] MEDS: Acetaminophen 325 MG TABLET 650 MG PO (23:55)
[2023-11-12] MEDS: cefTRIAXone sodium 1 GM in 0.9 % Sodium Chloride 50 ML IV (23:55)
[2023-11-12] MEDS: Ketorolac Tromethamine 15 MG/ML VIAL IVPUSH (23:55)
[2023-11-12] MEDS: 0.9 % Sodium Chloride 1,000 ML 999 ML IV ×2 (23:56)
[2023-11-13] VITALS (10 sets, daily range): BP systolic 99–130; BP diastolic 54–75; PULSE 101–130; RESP 16–20; TEMP 36.2–38.8; O2SAT 96–100
[2023-11-13 00:10] LABS: Lactic Acid 1.5 mmol/L (0.5-2.0)
[2023-11-13] MEDS: Azithromycin 500 MG in 0.9 % Sodium Chloride 250 ML 125 MG IV (00:36)
[2023-11-13] MEDS: Albuterol/Iprat 2.5/0.5MG 3 ML AMPUL.NEB INHALE (02:42)
[2023-11-13] MEDS: guaiFENesin DM 600/30 1 TAB TAB.ER.12H PO ×3 (02:57→21:45)
[2023-11-13] MEDS: Lactated Ringers 1,000 ML 100 ML IVCONT ×3 (02:58→22:24)
[2023-11-13] MEDS: Morphine Sulfate 2 MG/ML CARTRIDGE IVPUSH (03:32)
[2023-11-13 05:13] LABS: Hematocrit 30.1 % (37.0-47.0); Hemoglobin 9.5 g/dl (12.0-16.0); Mean Corpuscular HGB Conc 31.6 g/dl (31.0-35.0); Mean Corpuscular Hemoglobin 23.5 pg (27.0-33.0); Mean Corpuscular Volume 74.3 fL (80.0-98.0); Mean Platelet Volume 10.9 fL (9.4-12.3); Platelet Count 248 X10*3/uL (160-400); Red Blood Count 4.05 X10*6/uL (4.20-5.50); Red Cell Distribution Width 16.4 % (11.0-16.0); White Blood Count 20.6 X10*3/uL (4.8-10.8)
[2023-11-13 05:31] LABS: Anion Gap 13 (12-20); Blood Urea Nitrogen 5 mg/dL (9-16); Calcium 8.5 mg/dL (8.4-10.2); Carbon Dioxide 21 mmol/L (22-29); Chloride 108 mmol/L (96-108); Creatinine Clr Calc Pharmacy 112.1; Estimated Glomerular Filt Rate > 60; Glucose Random 108 mg/dL (60-115); Potassium 3.9 mmol/L (3.3-5.1); Sodium 138 mmol/L (135-145)
[2023-11-13 05:35] LABS: Band Neutrophils Percent 15 % (3-5); Lymphocytes Absolute Manual 0.6 X10*3/uL (1.2-4.9); Lymphocytes Percent Manual 3 % (20-40); Metamyelocytes Percent 5 %; Monocytes Absolute Manual 0.2 X10*3/uL (0.1-1.2); Monocytes Percent Manual 1 % (2-11); Myelocytes Absolute 0.2 X10*/uL; Myelocytes Percent 1 %; Neutrophils Absolute Manual 18.5 X10*3/uL (2.0-8.3); Neutrophils Percent Manual 75 % (45-73)
[2023-11-13 05:36] LABS: Ovalocytes 1+ (5-14) /OIF; Platelet Estimate NORMAL (NORMAL); Platelet Morphology Comment NORMAL; RBC Morphology NOTED
[2023-11-13 05:37] LABS: Dohle Bodies PRESENT; Spherocytes 1+ (0-2) /OIF; Tear Drop Cells 1+ (0-2) /OIF
--- NOTE | 2023-11-13 06:14 | P.HPHOSP_ITS ---
History of Present Illness Date of Service: 11/13/23 Attending physician on admission: Lul Wolff Chief Complaint: Generalized body aches Mabel Pinon is a 28 years old woman with past medical history significant for hypothyroidism on hormone replacement presents to the emergency department complaining of worsening body aches since yesterday morning associated with generalized weakness, headache, poor appetite, mild shortness on breath and cough for 4 days. She also reported suggestive fever, nausea, vomiting and 1 episode of nonbloody diarrhea. Denies abdominal pain, sore throat, pain with urination or blood in urine. She denied tobacco smoking but she vapes in occasions -last time she vaped was last Monday. Denied alcohol abuse, marijuana consumption or illicit drug use. Patient works in a daycare. She denied travel history. In the ED, she was found to have tachycardia and fever. Oxygen saturation is normal on room air and there is no hypotension. Blood workup was remarkable for leukocytosis of 28.6. Platelets are normal. There are no significant electrolyte imbalances. Renal function LFTs are normal. Urinalysis is not consistent with UTI. CXR showed focal opacity in the right mid lung that may represent pneumonia. ED Tx: NS 2 L bolus, Toradol 15 mg IV, acetaminophen 650 mg p.o., Zofran 4 mg IV, ceftriaxone 1 g IV, azithromycin 500 mg IV. Review of Systems 2 Review of Systems: All 12 systems were reviewed and normal except as noted in HPI. [facility] Medical History No pertinent past medical history Social History (Updated 11/12/23 @ 23:54 by Jacquelin Grajeda DO) Patient Tobacco Use Status: Never used Tobacco Smoked in Last 30 Days: Yes Use of substances other than those prescribed or required for medical reasons: No Advance Directives: No Advance Directives Information Provided: No Do you have a plan to hurt others: No Plan Patient : No Meds Allergies Allergy/AdvReac Type Severity Reaction Status Date / Time No Known Allergies Allergy Verified 11/12/23 21:02 Active Medications: Current Medications Acetaminophen (Acetaminophen 325 Mg Tablet) 975 mg PO Q6H PRN PRN Reason: Pain, Mild (Pain Scale 1-3), fever or headache Guaifenesin/Dextromethorphan (Guaifenesin Dm 600/30 1 Tab Tab.Er.12h) 1 tab PO BID [facility] Last Admin: 11/13/23 02:57 Dose: 1 tab Lactated Ringer's (Lr) 1,000 mls @ 100 mls/hr IVCONT .Q10H [facility] Last Admin: 11/13/23 02:58 Dose: 100 mls/hr Ceftriaxone Sodium 1 gm/ (Sodium Chloride) 50 mls @ 100 mls/hr IV Q24H [facility]ID Azithromycin 500 mg/ Sodium (Chloride) 250 mls @ 125 mls/hr IV Q24H [facility] Levothyroxine Sodium (Levothyroxine Sodium 25 Mcg Tablet) 25 mcg PO DAILY@0600 [facility] Melatonin (Melatonin 3 Mg Tablet) 6 mg PO BEDTIME PRN PRN Reason: Insomnia Ondansetron HCl (Ondansetron Hcl 4 Mg/2 Ml Vial) 4 mg IVPUSH Q8H PRN PRN Reason: Nausea and Vomiting Sodium Chloride (0.9 % Sodium Chloride Flush 3 Ml Syringe) 3 ml IVFLUSH QSHIFT [facility] Physical Exam 2 Vital Signs and Narrative: Vital Signs: Last Vital Signs Temp 98.9 F 11/13/23 04:00 Pulse 125 H 11/13/23 04:00 Resp 18 11/13/23 04:00 BP 130/69 11/13/23 04:00 Pulse Ox 98 11/13/23 04:00 O2 Del Method Room Air 11/13/23 04:00 BMI result Body Mass Index 30.9 Constitutional - Awake and Alert, No apparent distress. Febrile. Acutely ill. Pleasant. Cooperative. HEENT - PERRL, EOMI. Normal sclerae. Dry oral mucosa. Heart - Tachycardic. Normal rhythm. No murmur. Lungs - Normal lung expansion, Normal respiratory effort, No respiratory distress. Tachypnea. Right lower mild crackles. Bilateral rhonchi. No wheezing. Abdomen - NT / ND; +BS; No rebound or guarding Extremities - no calf tenderness bilaterally, no swelling Musculoskeletal - Normal inspection, normal ROM Skin - Warm/Dry. No jaundice. Neurological - Alert & oriented x3. No focal weakness. Normal speech. Normal behavior. Psychological - Appropriate affect Results Labs 11/13/23 04:51 11/13/23 04:51 Labs: Laboratory Results - last 24 hr 11/12/23 11/12/23 11/12/23 21:15 21:20 23:50 MCV 73.8 L MCH 23.8 L MCHC 32.3 RDW 16.2 H Plt Count 305 MPV 11.3 Immature Gran % (Auto) 1.0 H Neut % (Auto) 87.4 H Lymph % (Auto) 3.8 L [place] % (Auto) 7.6 Eos % (Auto) 0.0 Baso % (Auto) 0.2 Lymph # (Auto) 1.1 L [place] # (Auto) 2.2 H Eos # (Auto) 0.0 Baso # (Auto) 0.1 Abs Immat Gran (auto) 0.29 H Absolute Neuts (auto) 24.9 H Absolute Nucleated RBC 0.000 Nucleated RBC % (auto) 0.0 Neutrophils % (Manual) Band Neutrophils % Lymphocytes % (Manual) Monocytes % (Manual) Metamyelocytes % Myelocytes % Abs Neuts (Manual) Lymphocytes # (Manual) Monocytes # (Manual) Metamyelocytes # Myelocytes # Dohle Bodies Platelet Estimate Plt Morphology Comment RBC Morphology Spherocytes Tear Drop Cells Ovalocytes Smear Tech's Comments VERIFIED Anion Gap 15 Estim Creat Clear Calc 113.7 Estimated GFR > 60 Random Glucose 112 Lactic Acid 1.5 Calcium 9.6 D Total Bilirubin 0.6 AST 17 ALT 13 Alkaline Phosphatase 54 Total Protein 8.4 H Albumin 4.4 Urine Color Yellow Urine Appearance Cloudy Urine pH 6.5 Ur Specific [place] 1.025 Urine Protein Trace Urine Glucose (UA) Negative Urine Ketones Negative Urine Blood Negative Urine Nitrite Positive H Ur Leukocyte Esterase Negative Urine RBC 0-2 Urine WBC 0-5 Ur Squamous Epith Cells 3-5 Urine Bacteria 4+ Hyaline Casts 3-5 Urine Test NEGATIVE Influenza Type A (PCR) NEGATIVE Influenza Type B (PCR) NEGATIVE RSV RNA Qual (PCR) NEGATIVE SARS-CoV-2 RNA (RT-PCR) NEGATIVE 11/13/23 04:51 MCV 74.3 L MCH 23.5 L MCHC 31.6 RDW 16.4 H Plt Count 248 MPV 10.9 Immature Gran % (Auto) Cancelled Neut % (Auto) Cancelled Lymph % (Auto) Cancelled [place] % (Auto) Cancelled Eos % (Auto) Cancelled Baso % (Auto) Cancelled Lymph # (Auto) Cancelled [place] # (Auto) Cancelled Eos # (Auto) Cancelled Baso # (Auto) Cancelled Abs Immat Gran (auto) Cancelled Absolute Neuts (auto) Cancelled Absolute Nucleated RBC 0.000 Nucleated RBC % (auto) 0.0 Neutrophils % (Manual) 75 H Band Neutrophils % 15 H Lymphocytes % (Manual) 3 L Monocytes % (Manual) 1 L Metamyelocytes % 5 Myelocytes % 1 Abs Neuts (Manual) 18.5 H Lymphocytes # (Manual) 0.6 L Monocytes # (Manual) 0.2 Metamyelocytes # 1.0 Myelocytes # 0.2 Dohle Bodies PRESENT Platelet Estimate NORMAL Plt Morphology Comment NORMAL RBC Morphology NOTED Spherocytes 1+ (0-2) Tear Drop Cells 1+ (0-2) Ovalocytes 1+ (5-14) Smear Tech's Comments Anion Gap 13 Estim Creat Clear Calc 112.1 Estimated GFR > 60 Random Glucose 108 Lactic Acid Calcium 8.5 D Total Bilirubin AST ALT Alkaline Phosphatase Total Protein Albumin Urine Color Urine Appearance Urine pH Ur Specific [place] Urine Protein Urine Glucose (UA) Urine Ketones Urine Blood Urine Nitrite Ur Leukocyte Esterase Urine RBC Urine WBC Ur Squamous Epith Cells Urine Bacteria Hyaline Casts Urine Test Influenza Type A (PCR) Influenza Type B (PCR) RSV RNA Qual (PCR) SARS-CoV-2 RNA (RT-PCR) Imaging Radiologist's Impressions: Impressions Chest X-Ray 11/12/23 23:40 IMPRESSION: Focal opacity in the right midlung may represent pneumonia in the proper clinical setting. Recommend follow-up to resolution. Assessment and Plan (1) Sepsis: Qualifiers: Sepsis type: sepsis due to unspecified organism Sepsis acute organ dysfunction status: without acute organ dysfunction Qualified Code(s): A41.9 - Sepsis, unspecified organism Status: Acute (2) Pneumonia: Qualifiers: Laterality: right Lung location: middle lobe of lung Pneumonia type: d ue to unspecified organism Qualified Code(s): J18.9 - Pneumonia, unspecified organism Status: Acute Plan Mabel Pinon is a 28 y/o woman admitted with: * Sepsis secondary to community-acquired pneumonia. Admit to hospitalist service. Continue empiric IV antibiotic therapy with azithromycin and ceftriaxone. Fluids 30 ml/kg given by ED. Supplemental O2 to keep O2 sats> 90%. Bronchodilator therapy as needed. * Hypothyroidism. Continue levothyroxine. * Vaping. Vaping cessation encouraged. DVT prophylaxis: Encourage early ambulation. SCDs. Code status: Full Patient will need hospitalization for at least 2 midnights for sepsis secondary to community-acquired pneumonia treatment with IV fluids and empiric IV antibiotic therapy. She will also need close monitoring of vital signs and blood workup. Quality Stroke Does the patient have a stroke diagnosis?: No VTE Prior VTE?: No VTE Risk Level:: Medical - moderate - high VTE Device Contraindication: N/A - Device Ordered VTE Drug Contraindication: Treatment Not Indicated
[2023-11-13] MEDS: Levothyroxine Sodium 25 MCG TABLET PO (07:12)
[2023-11-13] MEDS: 0.9 % Sodium Chloride Flush 3 ML SYRINGE IVFLUSH ×3 (08:19→21:48)
--- NOTE | 2023-11-13 09:33 | PM.EVENT ---
Event Note Date of Service: 11/13/23 Event Note: seen and evaluated feels little better but reports headache, chills and weakness continue antibiotics pending cultures Fiorecet for headache Time Spent With Patient Time: Total time managing care of this patient today ____ minutes.
[2023-11-13] MEDS: Butalb/Acetamin/Caff 50/325/40 TABLET 1 TAB PO (09:53)
--- NOTE | 2023-11-13 10:33 | PHA.MEDREC ---
Pharmacy Consult ? Medication Reconciliation Pharmacy has completed the medication reconciliation. Spoke to Patient thorough Family member interpreting to confirm med list.
[2023-11-13] MEDS: Acetaminophen 325 MG TABLET 975 MG PO (16:38)
[2023-11-13] MEDS: cefTRIAXone sodium 1 GM in 0.9 % Sodium Chloride 50 ML IV (21:50)
[2023-11-14] MEDS: Azithromycin 500 MG in 0.9 % Sodium Chloride 250 ML 125 MG IV (01:24)
[2023-11-14 03:28] VITALS: BP 127/72; PULSE 90; RESP 18; TEMP 36.7; O2SAT 97
[2023-11-14] MEDS: Levothyroxine Sodium 25 MCG TABLET PO (06:19)
[2023-11-14] MEDS: Benzonatate 100 MG CAPSULE 200 MG PO ×3 (06:19→21:37)
[2023-11-14 07:32] LABS: Hemoglobin 9.5 g/dl (12.0-16.0); Mean Corpuscular HGB Conc 31.7 g/dl (31.0-35.0); Mean Corpuscular Hemoglobin 23.3 pg (27.0-33.0); Mean Corpuscular Volume 73.7 fL (80.0-98.0); Mean Platelet Volume 11.4 fL (9.4-12.3); Platelet Count 262 X10*3/uL (160-400); Red Blood Count 4.07 X10*6/uL (4.20-5.50); Red Cell Distribution Width 16.4 % (11.0-16.0); White Blood Count 18.7 X10*3/uL (4.8-10.8)
[2023-11-14] MEDS: guaiFENesin DM 600/30 1 TAB TAB.ER.12H PO ×2 (07:41→21:37)
[2023-11-14] MEDS: Lactated Ringers 1,000 ML 100 ML IVCONT ×2 (07:43→20:13)
[2023-11-14 07:51] VITALS: BP 114/56; PULSE 94; RESP 16; TEMP 36.3; O2SAT 97
[2023-11-14 07:51] LABS: Anion Gap 9 (12-20); Blood Urea Nitrogen 5 mg/dL (9-16); Calcium 8.9 mg/dL (8.4-10.2); Carbon Dioxide 24 mmol/L (22-29); Chloride 106 mmol/L (96-108); Creatinine Clr Calc Pharmacy 122.6; Estimated Glomerular Filt Rate > 60; Glucose Random 89 mg/dL (60-115); Potassium 3.4 mmol/L (3.3-5.1); Sodium 136 mmol/L (135-145)
[2023-11-14 13:18] LABS: Lyme Abs Screen <0.90 index
--- NOTE | 2023-11-14 14:31 | HO.PM.IMPN ---
Subjective Subjective Date of Service: 11/14/23 Interval History: seen and evaluated this morning feels better pending cultures still coughing. dysnea with exertion Review of Systems Review of Systems: Yes all other systems are reviewed and are negative Physical Exam Vital Signs: Vital Signs: Last Vital Signs Temp 97.4 F 11/14/23 07:51 Pulse 94 11/14/23 07:51 Resp 16 11/14/23 07:51 BP 114/56 L 11/14/23 07:51 Pulse Ox 97 11/14/23 07:51 O2 Del Method Room Air 11/14/23 07:51 BMI result Body Mass Index 30.9 Const: Other: Constitutional : Awake, interactive, not in distress Neck : Normal inspection, Supple Cardiovascular : RRR, no JVP, no lower extremity edema Respiratory : fair bilateral air entry, basal fine crackles mainly on right, wheezes or rhonchi Gastrointestinal: soft, lax, Normal bowel sounds, Non tender Skin : Warm, Dry Neurological : Alert & oriented x3, No focal deficit Objective Data Active Medications Acetaminophen (Acetaminophen 325 Mg Tablet) 975 mg PO Q6H PRN PRN Reason: Pain, Mild (Pain Scale 1-3), fever or headache Last Admin: 11/13/23 16:38 Dose: 975 mg Documented By: MILIND Albuterol Sulfate (Albuterol Sulfate (0.083%) 2.5 Mg/3 Ml Vial.Neb) 2.5 mg INHALE Q3H PRN PRN Reason: Shortness of Breath/Wheezing Benzonatate (Benzonatate 100 Mg Capsule) 200 mg PO TID [facility] Last Admin: 11/14/23 14:01 Dose: 200 mg Documented By: WILLOW Guaifenesin/Dextromethorphan (Guaifenesin Dm 600/30 1 Tab Tab.Er.12h) 1 tab PO BID [facility] Last Admin: 11/14/23 07:41 Dose: 1 tab Documented By: WILLOW Lactated Ringer's (Lr) 1,000 mls @ 100 mls/hr IVCONT .Q10H [facility] Stop: 11/14/23 21:00 Last Admin: 11/14/23 07:43 Dose: 100 mls/hr Documented By: WILLOW Ceftriaxone Sodium 1 gm/ (Sodium Chloride) 50 mls @ 100 mls/hr IV Q24H [facility] Last Infusion: 11/13/23 22:23 Dose: Infused Documented By: REDDY Azithromycin 500 mg/ Sodium (Chloride) 250 mls @ 125 mls/hr IV Q24H [facility] Last Infusion: 11/14/23 03:24 Dose: Infused Documented By: REDDY Ibuprofen (Ibuprofen 200 Mg Tablet) 200 mg PO Q6H PRN PRN Reason: Pain, Mild (Pain Scale 1-3) Levothyroxine Sodium (Levothyroxine Sodium 25 Mcg Tablet) 25 mcg PO DAILY@0600 [facility] Last Admin: 11/14/23 06:19 Dose: 25 mcg Documented By: REDDY Melatonin (Melatonin 3 Mg Tablet) 6 mg PO BEDTIME PRN PRN Reason: Insomnia Ondansetron HCl (Ondansetron Hcl 4 Mg/2 Ml Vial) 4 mg IVPUSH Q8H PRN PRN Reason: Nausea and Vomiting Sodium Chloride (0.9 % Sodium Chloride Flush 3 Ml Syringe) 3 ml IVFLUSH QSHIFT [facility] Last Admin: 11/14/23 08:24 Dose: Not Given Documented By: WILLOW Non-Admin Reason: IV Running Labs 11/14/23 07:07 11/14/23 07:07 Labs: Laboratory Results - last 24 hr 11/12/23 11/14/23 23:50 07:07 MCV 73.7 L MCH 23.3 L MCHC 31.7 RDW 16.4 H Plt Count 262 MPV 11.4 Absolute Nucleated RBC 0.000 Nucleated RBC % (auto) 0.0 Anion Gap 9 L Estim Creat Clear Calc 122.6 Estimated GFR > 60 Random Glucose 89 Calcium 8.9 Lyme Screen IgG & IgM <0.90 Microbiology Microbiology Results: Microbiology 11/12/23 21:20 Urine Culture - Final Urine clean catch - Urine calvo top Escherichia coli 11/12/23 23:50 Blood Culture - Preliminary Blood - Venous No growth after 24 hours. 11/12/23 23:50 Blood Culture - Preliminary Blood - Venous No growth after 24 hours. Assessment and Plan (1) Sepsis: Status: Acute (2) Pneumonia: Status: Acute (3) Elevated WBC count: Status: Acute (4) E. coli urinary tract infection: Status: Acute Plan Mabel Pinon is a 28 y/o woman admitted with: # Sepsis secondary to community-acquired pneumonia Pending cultures IV antibiotic therapy with azithromycin and ceftriaxone. O2 to keep O2 sats> 90%. Bronchodilator therapy as needed. # UTI Urine growing E.Coli on Ceftriaxone # Hypothyroidism. Continue levothyroxine. # Vaping. Vaping cessation encouraged. DVT prophylaxis: Encourage early ambulation. SCDs. Code status: Full Patient will need hospitalization overnight for sepsis secondary to community-acquired pneumonia treatment with IV fluids and empiric IV antibiotic therapy. She will also need close monitoring of vital signs and blood workup. Quality Stroke Does the patient have a stroke diagnosis?: No VTE Prior VTE?: No VTE Risk Level:: Medical - moderate - high VTE Device Contraindication: N/A - Device Ordered VTE Drug Contraindication: Treatment Not Indicated
[2023-11-14 15:13] VITALS: BP 126/70; PULSE 89; RESP 18; TEMP 36.2; O2SAT 98
--- NOTE | 2023-11-14 15:36 | MHC.CM.PN ---
POLICE DETECTIVE COMPLETED W/ [employer]ISTANCE. PT LIVES IN AN APARTMENT W/ S.O. AND CHILDREN. FUNCTIONALLY INDEPENDENT. DENIES USE OF DME OR SERVICES. REPORTS SHE IS ACTIVE W/ A PCP BUT CANNOT RECALL NAME/LOCATION OF PHYSICIAN OR PRACTICE. NO HCP. CM PROVIDED EDUCATION AND OFFERED ASSISTANCE. PATIENT DECLINED. DP: GOAL IS HOME SELF CARE. S.O. TO TRANSPORT. CM WILL CONTINUE TO FOLLOW.
[2023-11-14 19:13] VITALS: BP 133/73; PULSE 97; RESP 18; TEMP 36.4; O2SAT 98
[2023-11-14] MEDS: cefTRIAXone sodium 1 GM in 0.9 % Sodium Chloride 50 ML IV (21:43)
[2023-11-15] MEDS: Azithromycin 500 MG in 0.9 % Sodium Chloride 250 ML 125 MG IV (01:17)
[2023-11-15 04:00] VITALS: BP 118/56; PULSE 75; RESP 16; TEMP 36.1; O2SAT 100
[2023-11-15] MEDS: Levothyroxine Sodium 25 MCG TABLET PO (06:05)
[2023-11-15] MEDS: Acetaminophen 325 MG TABLET 975 MG PO (06:09)
[2023-11-15] MEDS: 0.9 % Sodium Chloride Flush 3 ML SYRINGE IVFLUSH (06:58)
[2023-11-15 07:01] LABS: Hematocrit 29.4 % (37.0-47.0); Hemoglobin 9.4 g/dl (12.0-16.0); Mean Corpuscular Hemoglobin 23.5 pg (27.0-33.0); Mean Corpuscular Volume 73.5 fL (80.0-98.0); Mean Platelet Volume 11.1 fL (9.4-12.3); Platelet Count 283 X10*3/uL (160-400); Red Cell Distribution Width 16.2 % (11.0-16.0); White Blood Count 10.9 X10*3/uL (4.8-10.8)
[2023-11-15 07:12] LABS: Anion Gap 13 (12-20); Blood Urea Nitrogen 6 mg/dL (9-16); Calcium 8.9 mg/dL (8.4-10.2); Carbon Dioxide 21 mmol/L (22-29); Chloride 107 mmol/L (96-108); Creatinine Clr Calc Pharmacy 140.1; Estimated Glomerular Filt Rate > 60; Glucose Random 81 mg/dL (60-115); Iron 14 mcg/dL (30-160); Percent Iron Saturation 5 % (15-50); Potassium 3.5 mmol/L (3.3-5.1); Sodium 137 mmol/L (135-145); Total Iron Binding Capacity 261 mcg/dL (228-428); Unsaturated Iron Binding 247 ug/dL
[2023-11-15 07:27] LABS: A. Phagocytphilium DNA,RT-PCR NOT DETECTED (NOT DETECTED); Babesia Microti DNA, RT-PCR NOT DETECTED (NOT DETECTED); Borrelia Miyamotoi,DNA RT-PCR NOT DETECTED (NOT DETECTED); E.Chaffeensis DNA RT-PCR NOT DETECTED (NOT DETECTED); Lyme(Borrelia ssp)DNA RT-PCR NOT DETECTED (NOT DETECTED)
[2023-11-15 08:00] VITALS: BP 108/62; PULSE 74; RESP 16; TEMP 36.1; O2SAT 100
[2023-11-15] MEDS: Ferrous Sulfate 324 MG TABLET.DR PO (08:08)
[2023-11-15] MEDS: guaiFENesin DM 600/30 1 TAB TAB.ER.12H PO (08:08)
[2023-11-15] MEDS: Benzonatate 100 MG CAPSULE 200 MG PO (08:08)
--- NOTE | 2023-11-15 10:45 | P.DS_ITS ---
DS: Providers Provider Date of Service: 11/15/23 Date of admission: 11/13/23 02:22 Primary care physician: Unknown Physician DS: Diagnosis Discharge Diagnosis (1) Sepsis: Status: Acute (2) Pneumonia: Status: Acute (3) Elevated WBC count: Status: Acute (4) E. coli urinary tract infection: Status: Acute (5) TERESO (iron deficiency anemia): Status: Acute DS: Summary Hospital Course Hospital Course: Admission note HPI Mabel Pinon is a 28 years old woman with past medical history significant for hypothyroidism on hormone replacement presents to the emergency department complaining of worsening body aches since yesterday morning associated with generalized weakness, headache, poor appetite, mild shortness on breath and cough for 4 days. She also reported suggestive fever, nausea, vomiting and 1 episode of nonbloody diarrhea. Denies abdominal pain, sore throat, pain with urination or blood in urine. She denied tobacco smoking but she vapes in occasions -last time she vaped was last Monday. Denied alcohol abuse, marijuana consumption or illicit drug use. Patient works in a daycare. She denied travel history. In the ED, she was found to have tachycardia and fever. Oxygen saturation is normal on room air and there is no hypotension. Blood workup was remarkable for leukocytosis of 28.6. Platelets are normal. There are no significant electrolyte imbalances. Renal function LFTs are normal. Urinalysis is not consistent with UTI. CXR showed focal opacity in the right mid lung that may represent pneumonia. ED Tx: NS 2 L bolus, Toradol 15 mg IV, acetaminophen 650 mg p.o., Zofran 4 mg IV, ceftriaxone 1 g IV, azithromycin 500 mg IV. Hospital course The patient was admitted for treatment of sepsis secondary to community-acquired pneumonia as shown on CXR and evidence of E.Coli urine infection covered with IV antibiotics of Ceftriaxone and Azithromycin with good response over the course of hospital stay as blood cultures remained negative and she was able to ambulate on room air with no reported hypoxia or dyspnea. She was also noted to have low H&H values with low iron stores. started on Iron supplement upon discharge. Discharge plan Continue antibiotics as prescribed increase activity as tolerated continue , the antibiotics might be released into your milk in very small amounts, it might cause gastric upset for the baby. follow up with PCP Time Attestation Discharge Coordination Time (in mins): 34 Quality: Safe Use of Opioids Does Pt have an Active Cancer Diagnosis on the Problem List?: No Quality: Stroke Does the patient have a stroke diagnosis?: No Physical Exam Vital Signs: Vital Signs: Last Vital Signs Temp 96.9 F 11/15/23 08:00 Pulse 74 11/15/23 08:00 Resp 16 11/15/23 08:00 BP 108/62 11/15/23 08:00 Pulse Ox 100 11/15/23 08:00 O2 Del Method Room Air 11/15/23 08:00 BMI result Body Mass Index 30.9 Const: Other: Constitutional : Awake, interactive, not in distress Neck : Normal inspection, Supple Cardiovascular : RRR, no JVP, no lower extremity edema Respiratory : fair bilateral air entry, no crackles , wheezes or rhonchi Gastrointestinal: soft, lax, Normal bowel sounds, Non tender Skin : Warm, Dry Neurological : Alert & oriented x3, No focal deficit DS: Data Data Completed and Pending Labs on day of discharge: Laboratory Results - last 24 hr 11/12/23 11/15/23 23:50 06:02 WBC 10.9 H RBC 4.00 L Hgb 9.4 L Hct 29.4 L MCV 73.5 L MCH 23.5 L MCHC 32.0 RDW 16.2 H Plt Count 283 MPV 11.1 Absolute Nucleated RBC 0.000 Nucleated RBC % (auto) 0.0 Sodium 137 Potassium 3.5 Chloride 107 Carbon Dioxide 21 L Anion Gap 13 BUN 6 L Creatinine 0.56 Estim Creat Clear Calc 140.1 Estimated GFR > 60 Random Glucose 81 Calcium 8.9 Iron 14 L TIBC 261 % Saturation 5 L Unsat Iron Binding 247 A.phagocytophil DNA PCR NOT DETECTED Babesia microti DNA PCR NOT DETECTED Borrelia sp DNA (PCR) NOT DETECTED Lyme Screen IgG & IgM <0.90 Lyme Progressive Test TNP Borrelia miyamotoi (PCR) NOT DETECTED E.chaffeensis DNA (PCR) NOT DETECTED Tick-borne Disease PCR SEE NOTE Preliminary micro results at discharge 11/12/23 23:50 Blood Culture - Preliminary Blood - Venous No growth after 48 hours. 11/12/23 23:50 Blood Culture - Preliminary Blood - Venous No growth after 48 hours. Imaging Chest x-ray: Radiologist's impression: ITS Impressions Chest X-Ray 11/12/23 23:40 IMPRESSION: Focal opacity in the right midlung may represent pneumonia in the proper clinical setting. Recommend follow-up to resolution. Discharge Plan Discharge Anticipated Discharge Date/Time: 11/15/23 10:14 Patient Disposition: Home, Self-Care Discharge Diagnosis: Pneumonia Urine infection Referrals: Physician,Unknown J [Primary Care Provider] - 1 Week Discharge Medications: New ferrous sulfate 324 mg (65 mg iron) Tablet,Delayed Release (Dr/Ec) 324 mg PO DAILY Qty: 90 0RF azithromycin 500 mg tablet 500 mg PO DAILY 5 Days Qty: 5 0RF cefuroxime axetil 500 mg tablet 500 mg PO BID Qty: 10 0RF Continued levothyroxine 25 mcg tablet 25 mcg PO DAILY acetaminophen [Tylenol] 325 mg Tablet 325 mg PO QID PRN (Reason: Pain) ibuprofen 200 mg Tablet 200 mg PO Q6H PRN (Reason: Pain) Discharge Orders: Discharge Order (Routine); Ordered 11/15/23 Ordered By: Nnamdi Israel Diet: Advance to usual diet Activity on Discharge: As tolerated Stand Alone Forms: Patient Portal Discharge page, Work/School Release Print Language: [place] Care Plan Goals: Continue antibiotics as prescribed increase activity as tolerated continue , the antibiotics might be released into your milk in very small amounts, it might cause gastric upset for the baby. follow up with PCP Health Concerns: Read below Plan of Treatment: Read below Assessment: Read below Patient Instructions: Benzonatate (By mouth), Decongestant/Expectorant (By mouth), Ceftriaxone (By injection), Azithromycin (By injection), Community Acqui red Pneumonia (GEN)
--- NOTE | 2023-11-15 13:02 | MHC.CM.PN ---
Pt is medically cleared for discharge home self-care, pts s/o to transport her home.
== END 2023-11-15 11:09 | disposition home or self-care (01) | DRG 720 ==
LOC: HO.ED 23:59 → HO.EDOVER 11-13 02:27 → HO.S3 11-13 11:01
PROVIDERS: Admitting Provider Internal Medicine; Emergency Provider Emergency Medicine; Visit Provider Student in an Organized Health Care Education/Training Program
DX: A41.9 Sepsis, unspecified organism (principal); J18.9 Pneumonia, unspecified organism; F17.210 Nicotine dependence, cigarettes, uncomplicated; E03.9 Hypothyroidism, unspecified; F17.290 Nicotine dependence, other tobacco product, uncomplicated; D50.9 Iron deficiency anemia, unspecified; B96.20 Unspecified Escherichia coli [E. coli] as the cause of diseases classified elsewhere; N39.0 Urinary tract infection, site not specified; Z20.822 Contact with and (suspected) exposure to COVID-19; Z71.6 Tobacco abuse counseling; Z79.890 Hormone replacement therapy; Z79.899 Other long term (current) drug therapy
CPT/HCPCS: 0241U; 36415; 71045; 80048; 80053; 81001; 81025; 83540; 83605; 85007; 85025; 85027; 86617; 86618; 87040; 87086; 87088; 87186; 87468; 87469; 87478; 87484; 87798; 94640; 99285; J0456; J0696; J1885; J2270; J2405; J7120

== ENCOUNTER → 2023-11-13 02:22 | Outpatient (BNV) | payer OTHER, SELFPAY | PROVIDERS: Admitting Provider Internal Medicine; Emergency Provider Emergency Medicine; Visit Provider Internal Medicine | DX: A41.9 Sepsis, unspecified organism (principal); J18.9 Pneumonia, unspecified organism | CPT/HCPCS: 99223; 99233; 99239; 99499 ==